=== PATIENT | male | born 1970 | race American Indian/Alaskan Native ===

== ENCOUNTER 2016-12-11 14:51 | Observation (INO) | payer OTHER ==
[~2016-12-11] VITALS: Ht 180.3 cm; Wt 75.9 kg
[2016-12-11 16:01] VITALS: BP 122/70; TEMP 98.9; Ht 180.3 cm; Wt 75.9 kg
[2016-12-11 16:40] LABS: PLATELET COUNT 202 K/uL (142-355)
[2016-12-11 17:02] LABS: POTASSIUM 3.7 mmol/L (3.6-5.2); SODIUM 136 mmol/L (136-145)
[2016-12-11 20:00] VITALS: BP 112/64; TEMP 98.7
[2016-12-12] VITALS (7 sets, daily range): BP systolic 104–115; BP diastolic 61–73; TEMP 97.8–98.5
[2016-12-12 06:26] LABS: PLATELET COUNT 175 K/uL (142-355)
[2016-12-12 06:55] LABS: POTASSIUM 3.7 mmol/L (3.6-5.2); SODIUM 135 mmol/L (136-145)
--- NOTE | 2016-12-12 08:36 | NUR ---
PATIENT DOING I.S. ON HIS OWN.
[2016-12-13] VITALS: BP 113/62; TEMP 98.3
[2016-12-13 04:00] VITALS: BP 96/69; TEMP 98.2
[2016-12-13 08:00] VITALS: BP 114/62; TEMP 98
--- NOTE | 2016-12-13 10:41 | NUR ---
IV SITE D/C'D WITH TIP INTACT AND SITE CARE DONE. D/C INSTRUCTIONS GIVEN TO PT AND HE VERBALIZES UNDERSTANDING. PT OUT VIA W/C WITH NAD.
[2016-12-13 11:54] VITALS: BP 120/65; TEMP 98.1
== END 2016-12-13 10:47 | disposition home or self-care (01) ==
LOC: MED/SURG 14:51
PROVIDERS: Emergency Medicine; ADMIT Student in an Organized Health Care Education/Training Program
DX: R11.2 Nausea with vomiting, unspecified (principal); A08.8 Other specified intestinal infections; R10.11 Right upper quadrant pain
CPT/HCPCS: 36415; 36591; 80053; 81000; 83690; 85027; 87045; 87328; 87329; 87493; 87798; 87899; 96365; 96366; 96367; 96375; 99220; G0378; G0379; J0744; J1885; J2270; J2405; J3490; Q9963

== ENCOUNTER 2018-08-12 15:16 | Emergency (ER) | payer OTHER ==
[~2018-08-12] VITALS: Ht 180.3 cm; Wt 77.1 kg
[2018-08-12 17:32] LABS: PLATELET COUNT 277 K/uL (142-355)
[2018-08-12 18:28] LABS: POTASSIUM 4.3 mmol/L (3.6-5.2); SODIUM 138 mmol/L (136-145)
[2018-08-12 20:01] VITALS: BP 104/78; TEMP 98.1
== END 2018-08-12 20:01 | disposition home or self-care (01) ==
LOC: ED 15:16
DX: S32.039A Unspecified fracture of third lumbar vertebra, initial encounter for closed fracture (principal); R55 Syncope and collapse; R51 Headache; M47.9 Spondylosis, unspecified; N28.89 Other specified disorders of kidney and ureter; W18.39XA Other fall on same level, initial encounter; Y92.89 Other specified places as the place of occurrence of the external cause
CPT/HCPCS: 80053; 80307; 80320; 81000; 84484; 85027; 93005; 99284

== ENCOUNTER 2019-03-31 08:57 | Outpatient (CLI) | payer OTHER | END 2019-03-31 20:20 | disposition home or self-care (01) | LOC: RAD 08:57 | DX: M54.5 Low back pain (principal); M19.90 Unspecified osteoarthritis, unspecified site; Q61.8 Other cystic kidney diseases; M75.101 Unspecified rotator cuff tear or rupture of right shoulder, not specified as traumatic ==

== ENCOUNTER 2023-08-15 15:46 | Outpatient (CLI) | payer OTHER | END 2023-08-15 19:55 | disposition home or self-care (01) | LOC: RAD 15:46 | PROVIDERS: ATTEND Nurse Practitioner Family | DX: S67.21XA Crushing injury of right hand, initial encounter (principal); Y92.89 Other specified places as the place of occurrence of the external cause ==